=== PATIENT | female | born 1980 | race Caucasian/White ===

== ENCOUNTER 2017-02-22 17:05 | Emergency (ER) | payer OTHER ==
[~2017-02-22] VITALS: Ht 175.3 cm; Wt 148.1 kg
[~2017-02-22 17:05] MED LIST: BUPROPION XL300 MG PO; CELEXA20 MG PO; CELEXA40 MG PO; CITALOPRAM HBR20 MG PO; FERROUS GLUCON324 MG PO; LATUDA40 MG PO; LIBRIUM25 MG PO; METRONIDAZOLE500 MG PO; NALTREXONE HCL50 MG PO; NAPROXEN500 MG PO; NITROFURANTOIN100 M3 PO; ONDANSETRON4 MG/2 ML IV; PERCOCET 5/31 TABLET PO; PRAZOSIN HCL1 MG PO; PREDNISONE20 MG PO; PRENATA CHEWAB1 EACH PO; PRENATAL VITAMIN; SERTRALINE HCL50 MG PO; SUBOXONE 8 MG-1 EAC2 SL; UNABLE TO OBTAIN; WELLBUTRIN XL150 MG PO; ZITHROMAX250 MG PO; ZOFRAN ODT4 MG PO; ZOFRAN ODT8 MG PO; ZOLOFT25 MG PO; ZOLPIDEM TARTRAT5 MG PO
[2017-02-22 19:24] LABS: HEMATOCRIT 40.5 % (36.0-46.0); MCH 26.5 PG (29.0-34.0); MCHC 32.3 G/DL (30.0-36.0); MEAN PLAT.VOLUME 9.8 uM^3 (9.5-12.4); PLATELET COUNT 245 K/uL (156-360); RBC DIS.WIDTH-SD 41.2 % (39-53); RED BLOOD COUNT 4.94 M/uL (3.80-5.20); WHITE BLOOD COUNT 6.4 K/uL (4.1-10.2)
[2017-02-22 19:33] LABS: CHLORIDE 108 mEq/L (99-109); SODIUM 136 mEq/L (136-147)
[2017-02-22 19:35] LABS: GLUCOSE 109 mg/dL (70-99)
[2017-02-22 19:37] LABS: ANION GAP 10 MEQ/L (2-14); TOTAL BILIRUBIN 0.7 mg/dL (0.0-1.0)
[2017-02-22 19:39] LABS: ALKALINE PHOSPHATASE 81 IU/L (3-129); GFR ESTIMATE (CALCULATED) > 59 mL/min/
[2017-02-22 19:40] LABS: UREA NITROGEN (BUN) 10 mg/dL (9-23)
[2017-02-22 19:42] LABS: LIPASE 10 U/L (1.0-51.0)
[2017-02-22 19:48] LABS: QUANTITATIVE HCG < 4.0 MIU/ML
[2017-02-22] MEDS ORDERED: ZOFRAN ODT4 MG PO (19:53)
[2017-02-22] MEDS ORDERED: BENTYL10 MG PO (19:53)
[2017-02-22 21:24] LABS: ADD MIUA? YES; BILIRUBIN SMALL; BLOOD NEGATIVE; COLOR AMBER ((YELLOW)); GLUCOSE (STRIP) NEGATIVE; KETONES 5; LEUKOCYTES TRACE; NITRITE NEGATIVE; PROTEIN (STRIP) 30; SPECIFIC GRAVITY 1.033 (1.000-1.030); UROBILINOGEN 0.2 MG/DL (0.2-1.0)
[2017-02-22] MEDS ORDERED: ZITHROMAX Z-PA250 MG PO (21:27)
[2017-02-22 22:00] VITALS: BP 118/94
[2017-02-22 22:02] LABS: BACTERIA 2+ /HPF; CASTS NONE SEEN /LPF; CRYSTALS NONE SEEN; EPITHELIAL CELLS 2+ /HPF; MUCUS 3+ /LPF; RED BLOOD CELLS 0-5 /HPF (0-5)
== END 2017-02-22 22:01 | disposition home or self-care (01) ==
LOC: EME 17:05
PROVIDERS: Nurse Practitioner Family
DX: J12.9 Viral pneumonia, unspecified (principal); R11.2 Nausea with vomiting, unspecified; I47.1 Supraventricular tachycardia; F32.9 Major depressive disorder, single episode, unspecified; F17.200 Nicotine dependence, unspecified, uncomplicated; Z90.49 Acquired absence of other specified parts of digestive tract
CPT/HCPCS: 71020; 80053; 81003; 83690; 84702; 85027; 93005; 99281; 99284; J0696; J2405; J7030; J7050